=== PATIENT | female | born 1935 | race Caucasian/White ===

== ENCOUNTER 2019-06-22 01:55 | Observation (INO) | payer MEDICARE, OTHER ==
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
[2019-06-22] MEDS ORDERED: Ondansetron PF 4 MG/2 ML Vial IVP PRN (03:41)
[2019-06-22] MEDS ORDERED: cloNIDine 0.1 MG TAB PO PRN (03:41)
[2019-06-22] MEDS ORDERED: hydrALAZINE 20 MG/ML VIAL SLOW IVP PRN (03:41)
[2019-06-22] MEDS ORDERED: Promethazine HCl 12.5 MG in Sodium Chloride 0.9% 50 ML IVPB PRN (03:41)
[2019-06-22] MEDS ORDERED: Morphine 2 MG/ML SYRINGE SLOW IVP PRN (03:41)
[2019-06-22 03:46] LABS: Troponin I 0.022 ng/mL (< 0.028)
[2019-06-22] MEDS ORDERED: Senokot S 8.6-50 MG TAB PO PRN (03:46)
[2019-06-22] MEDS ORDERED: Guaifenesin DM 100-10/5 ML UDCUP PO PRN (03:46)
[2019-06-22] MEDS ORDERED: HYDROcodone/Acetaminophen 5/325 mg Tablet PO PRN (03:46)
[2019-06-22] MEDS ORDERED: Bisacodyl 5 MG TAB PO PRN (03:46)
[2019-06-22] MEDS ORDERED: Acetaminophen 325 MG TAB PO PRN (03:46)
[2019-06-22] MEDS ORDERED: Dextrose 50% Abboject 50 ML SYRINGE SLOW IVP PRN (03:47)
[2019-06-22] MEDS ORDERED: Dextrose 5% in Water 1,000 ML IV PRN (03:47)
[2019-06-22] MEDS ORDERED: HumaLOG 300 UNITS/3 ML VIAL SC PRN (03:47)
[2019-06-22 03:48] VITALS: BMI 24.3
[2019-06-22] MEDS ORDERED: Sodium Chloride 0.9% 1,000 ML IV SCH (04:00)
[2019-06-22 05:00] LABS: Troponin I 0.023 ng/mL (< 0.028)
[2019-06-22 08:20] LABS: Troponin I 0.013 ng/mL (< 0.028)
[2019-06-22] MEDS ORDERED: Prevnar 13-Val Conj/PF 0.5 ML SYRINGE IM ONE (09:00)
[2019-06-22] MEDS: levETIRAcetam 500 mg/5 ml Oral Solution PO SCH ×2 (09:25→21:20)
[2019-06-22] MEDS: Famotidine 20 MG TAB PO SCH (09:27)
[2019-06-22] MEDS: carBAMazepine 200 MG TAB PO SCH ×2 (09:27→21:20)
[2019-06-22] MEDS: Enoxaparin Sodium 40 MG/0.4 ML SYRINGE SC SCH (09:27)
[2019-06-22] MEDS: Polyethylene Glycol 3350 17 GM Packet PO SCH (10:21)
--- NOTE | 2019-06-22 10:30 | PDOC.HOSPP ---
- Subjective Encounter Date: 06/22/19 Encounter Time: 08:15 Subjective: Patient seen and examined. No new complaints. No overnight events - Objective Vital Signs & Weight: Vital Signs (12 hours) Temp Pulse Resp BP Pulse Ox 06/22/19 03:26 98.1 F 96 16 148/69 H 96 Weight Weight 133 lb 1.6 oz I&O: 06/21/19 06/22/19 06/23/19 06:59 06:59 06:59 Intake Total 150 Output Total 0 Balance 150 Additional Labs: Accuchecks 06/22/19 05:50 POC Glucose 141 H Radiology Reviewed by me: Yes EKG Reviewed by me: Yes Hospitalist ROS - Review of Systems ENT: denies: ear pain, ear discharge, nose pain, nose discharge, nose congestion , mouth pain, mouth swelling, throat pain, throat swelling, other Respiratory: denies: cough, dry, shortness of breath, hemoptysis, SOB with excertion, pleuritic pain, sputum, wheezing, other Cardiovascular: denies: chest pain, palpitations, orthopnea, paroxysmal noc. dyspnea, edema, light headedness, other Gastrointestinal: denies: nausea, vomiting, abdominal pain, diarrhea, constipation, melena, hematochezia, other Genitourinary: denies: dysuria, frequency, incontinence, hematuria, retention, other Musculoskeletal: denies: neck pain, shoulder pain, arm pain, back pain, hand pain, leg pain, foot pain, other - Medication Medications: Active Medications Generic Name Dose Route Start Last Admin Trade Name Freq PRN Reason Stop Dose Admin Carbamazepine 200 mg 06/22/19 09:00 06/22/19 09:27 Tegretol PO 200 mg BID PETRONA Administration Enoxaparin Sodium 40 mg 06/22/19 09:00 06/22/19 09:27 Lovenox SC 40 mg 0900 PETRONA Administration Famotidine 20 mg 06/22/19 09:00 06/22/19 09:27 Pepcid PO 20 mg 0900 PETRONA Administration Sodium Chloride 1,000 mls @ 50 mls/hr 06/22/19 04:00 06/22/19 04:33 Normal Saline 0.9% IV 1,000 mls .Q20H PETRONA Administration Levetiracetam 750 mg 06/22/19 09:00 05/06/20 09:25 Keppra Oral Solution PO 750 mg BID PETRONA Administration Polyethylene Glycol 17 gm 06/22/19 09:00 06/22/19 10:21 Miralax PO Not Given DAILY PETRONA - Exam General Appearance: NAD, awake alert Eye: PERRL, anicteric sclera ENT: normocephalic atraumatic, no oropharyngeal lesions Neck: supple, symmetric, no JVD, no thyromegaly Heart: RRR, no murmur, no gallops, no rubs Respiratory: CTAB, no wheezes, no rales, no ronchi Gastrointestinal: soft, non-tender, non-distended Extremities: no cyanosis, no clubbing Extremities - other findings: laceration over left elbow noted Skin: normal turgor, no lesions Neurological: cranial nerve grossly intact, no focal deficits Musculoskeletal: normal tone, normal strength Psychiatric: normal affect, normal behavior Hosp A/P (1) Syncope Code(s): R55 - SYNCOPE AND COLLAPSE Status: Acute (2) Leucocytosis Code(s): D72.829 - ELEVATED WHITE BLOOD CELL COUNT, UNSPECIFIED Status: Acute (3) Seizure disorder Code(s): G40.909 - EPILEPSY, UNSP, NOT INTRACTABLE, WITHOUT STATUS EPILEPTICUS Status: Chronic - Plan old records reviewed/req, PT/OT will observe today will repeat labs tomorrow orthostatic vitals echo PT/OT expecting discharge in morning if no event on tele for 24 hours tried to reach family but unable to contact them on phone, will try again
[2019-06-22] MEDS ORDERED: Diabetic Tussin 200 MG/10 ML UDCUP PO PRN (11:37)
[2019-06-22] MEDS ORDERED: Loperamide HCl 2 MG CAP PO PRN (11:37)
[2019-06-22] MEDS ORDERED: Cepastat Lozenges 1 LOZ PO PRN (11:37)
[2019-06-22] MEDS ORDERED: Artificial Tears 18 DROP/0.9 ML EA EYE PRN (11:37)
[2019-06-22] MEDS ORDERED: Loratadine 10 MG TAB PO PRN (11:37)
[2019-06-22] MEDS ORDERED: Calcium Carbonate 500 MG ChewTAB PO PRN (11:37)
[2019-06-22] MEDS ORDERED: Sodium Chloride 0.65% Nasal 44 ML BOT EA NARE PRN (11:37)
[2019-06-22 13:09] LABS: Troponin I 0.027 ng/mL (< 0.028)
[2019-06-22 15:58] LABS: Troponin I 0.017 ng/mL (< 0.028)
[2019-06-23 04:03] LABS: #Basophils 0.1 thou/uL (0.0-0.2); #Eosinphils 0.6 thou/uL (0.0-0.7); #Lymphocytes 2.4 thou/uL (1.20-3.40); #Monocytes 0.9 thou/uL (0.11-0.59); #Neutrophils 4.9 thou/uL (1.40-6.50); %Basophils 1.3 % (0.0-1.0); %Eosinophils 6.6 % (0.0-10.0); %Lymphocytes 27.4 % (21.0-51.0); %Monocytes 9.7 % (0.0-10.0); Hemoglobin 12.4 g/dL (12.0-16.0); Mean Corpuscular HGB CONC 32.6 g/dL (32.0-36.0); Mean Corpuscular Hemoglobin 30.8 pg (27.0-31.0); Mean Corpuscular Volume 94.5 fL (78.0-98.0); Mean Platelet Volume 6.5 fL (7.4-10.4); Platelet Count 290 thou/uL (130-400); RBC Distribution Width 11.2 % (11.5-14.5); Red Blood Cell (RBC) Count 4.01 mill/uL (4.20-5.40); White Blood Cell (WBC) Count 8.8 thou/uL (4.8-10.8)
[2019-06-23 04:25] LABS: ALT (SGPT) 22 U/L (8-55); AST (SGOT) 31 U/L (5-34); Albumin 3.9 g/dL (3.4-4.8); Alkaline Phosphatase 74 U/L (40-110); Anion Gap 16 mmol/L (10-20); BUN (Urea Nitrogen) 11 mg/dL (9.8-20.1); Bilirubin, Total 0.5 mg/dL (0.2-1.2); Calc. Creatinine Clearance 69 mL/min (70-130); Calcium 8.6 mg/dL (7.8-10.44); Carbon Dioxide 22 mmol/L (23-31); Chloride 99 mmol/L (98-107); Estimated GFR-MDRD Greater than 90; Globulin 3.1 g/dL (2.4-3.5); Glucose 101 mg/dL (83-110); Magnesium 2.2 mg/dL (1.6-2.6); Potassium 3.7 mmol/L (3.5-5.1); Sodium 133 mmol/L (136-145)
[2019-06-23] MEDS ORDERED: Metoprolol Tartrate 25 MG TAB PO SCH (09:00)
[2019-06-23] MEDS ORDERED: Amlodipine 5 MG TAB PO SCH (09:00)
[2019-06-23] MEDS ORDERED: carBAMazepine 200 MG TAB PO SCH (09:00)
[2019-06-23] MEDS: Famotidine 20 MG TAB PO SCH (09:13)
[2019-06-23] MEDS: levETIRAcetam 500 mg/5 ml Oral Solution PO SCH (09:14)
[2019-06-23] MEDS: Enoxaparin Sodium 40 MG/0.4 ML SYRINGE SC SCH (09:15)
[2019-06-23] MEDS: Polyethylene Glycol 3350 17 GM Packet PO SCH (09:18)
[2019-06-23] MEDS: carBAMazepine 200 MG TAB PO SCH (09:21)
--- NOTE | 2019-06-23 09:58 | PDOC.HOSPP ---
- Subjective Encounter Date: 06/23/19 Encounter Time: 08:10 Subjective: Patient seen and examined. No new complaints. No overnight events - Objective Vital Signs & Weight: Vital Signs (12 hours) Temp Pulse Resp BP BP BP Pulse Ox 06/23/19 09:15 80 126/82 06/23/19 04:30 110 H 180/70 H 06/23/19 03:20 97.9 F 110 H 18 180/70 H 94 L 06/23/19 00:00 173/76 H 06/22/19 23:29 178/89 H Weight Admit Weight 133 lb 1.6 oz Weight 133 lb 1.6 oz I&O: 06/22/19 06/23/19 06/24/19 06:59 06:59 06:59 Intake Total 150 150 Output Total 0 Balance 150 150 Result Diagrams: 06/23/19 03:38 06/23/19 03:38 Additional Labs: Accuchecks 06/23/19 06/22/19 06/22/19 05:33 20:22 16:21 POC Glucose 107 122 H 116 H 06/22/19 11:02 POC Glucose 114 H EKG Reviewed by me: Yes Hospitalist ROS - Review of Systems ENT: denies: ear pain, ear discharge, nose pain, nose discharge, nose congestion , mouth pain, mouth swelling, throat pain, throat swelling, other Respiratory: denies: cough, dry, shortness of breath, hemoptysis, SOB with excertion, pleuritic pain, sputum, wheezing, other Cardiovascular: denies: chest pain, palpitations, orthopnea, paroxysmal noc. dyspnea, edema, light headedness, other Gastrointestinal: denies: nausea, vomiting, abdominal pain, diarrhea, constipation, melena, hematochezia, other Genitourinary: denies: dysuria, frequency, incontinence, hematuria, retention, other Musculoskeletal: denies: neck pain, shoulder pain, arm pain, back pain, hand pain, leg pain, foot pain, other - Medication Medications: Active Medications Generic Name Dose Route Start Last Admin Trade Name Freq PRN Reason Stop Dose Admin Amlodipine Besylate 5 mg 06/23/19 09:00 06/23/19 09:15 Norvasc PO Not Given DAILY PETRONA Carbamazepine 200 mg 06/23/19 09:00 06/23/19 09:18 Tegretol PO 200 mg BID PETRONA Administration Clonidine 0.1 mg 06/22/19 03:41 06/22/19 21:24 Catapres PO 0.1 mg BID PRN Administration SBP > 160 use second Enoxaparin Sodium 40 mg 06/22/19 09:00 06/23/19 09:15 Lovenox SC 40 mg 0900 PETRONA Administration Famotidine 20 mg 06/22/19 09:00 06/23/19 09:13 Pepcid PO 20 mg 09 PETRONA Administration Hydralazine HCl 10 mg 06/22/19 03:41 06/23/19 04:30 Apresoline SLOW IVP 10 mg Q6H PRN Administration SBP GREATER THAN 160 Levetiracetam 750 mg 06/22/19 09:00 06/23/19 09:14 Keppra Oral Solution PO 750 mg BID PETRONA Administration Metoprolol Tartrate 25 mg 06/23/19 09:00 06/23/19 09:15 Lopressor PO 25 mg BID PETRONA Administration Polyethylene Glycol 17 gm 06/22/19 09:00 06/23/19 09:18 Miralax PO Not Given DAILY PETRONA - Exam General Appearance: NAD, awake alert Eye: PERRL, anicteric sclera ENT: normocephalic atraumatic, no oropharyngeal lesions Neck: supple, symmetric, no JVD, no thyromegaly Heart: RRR, no murmur, no gallops, no rubs Respiratory: CTAB, no wheezes, no rales, no ronchi Gastrointestinal: soft, non-tender, non-distended, normal bowel sounds Extremities: no cyanosis, no clubbing, no edema Skin: normal turgor, no lesions Neurological: no focal deficits Musculoskeletal: normal tone, normal strength Psychiatric: normal affect, normal behavior Hosp A/P (1) Syncope Code(s): R55 - SYNCOPE AND COLLAPSE Status: Acute (2) Leucocytosis Code(s): D72.829 - ELEVATED WHITE BLOOD CELL COUNT, UNSPECIFIED Status: Acute (3) Seizure disorder Code(s): G40.909 - EPILEPSY, UNSP, NOT INTRACTABLE, WITHOUT STATUS EPILEPTICUS Status: Chronic - Plan old records reviewed/req will observe today will repeat labs tomorrow orthostatic vitals echo PT/OT expecting discharge in morning if no event on tele for 24 hours tried to reach family but unable to contact them on phone, will try again 06/23/19 home health on DC add metoprolol DC today
--- NOTE | 2019-06-23 10:58 | DIS ---
DATE OF ADMISSION: 06/22/2019 DATE OF DISCHARGE: 06/23/2019 PRIMARY CARE PHYSICIAN: [facility] Call Admission. DISCHARGE DISPOSITION: Home with home health. PRIMARY DISCHARGE DIAGNOSES: 1. Syncope, unclear etiology, resolved. 2. Leukocytosis, resolved. 3. Hypertension. SECONDARY DISCHARGE DIAGNOSIS: Seizure disorder. PRIMARY PROCEDURE/OPERATION: None. RADIOLOGICAL INVESTIGATION: Echocardiography showed EF 55% to 60%. SIGNIFICANT LABORATORY DATA: WBC 8.8, hemoglobin 12.4, platelets 290. Sodium 133, creatinine 0.60. LFT normal. Cardiac enzymes negative. DISCHARGE MEDICATIONS: 1. Metoprolol 25 mg p.o. twice daily. 2. Keppra 750 mg p.o. b.i.d. 3. Tegretol 200 mg p.o. b.i.d. CONTRAINDICATION: None. CODE STATUS: Full code. INPATIENT RN HEDIS: None. ALLERGIES: NO KNOWN DRUG ALLERGIES. DISCHARGE PLAN: Posthospital, the patient will follow up with primary care physician in one week. HOSPITAL COURSE: An 83-year-old female with above-mentioned medical problem, who was admitted by Dr. Howard, please see his H and P for further details. The patient was transferred from [place] [facility] for syncopal episode. The patient did not have any seizure activity. Routine workup at other emergency room unremarkable. We obtained echocardiography, which was also unremarkable. Orthostatic vitals were slightly positive, but the patient was having high blood pressure and that is why we started metoprolol on discharge. Otherwise, the patient did not have any seizure activity, and her telemetry remained unremarkable and we have ruled out acute coronary syndrome. The patient was seen and examined at bedside today. Please see my progress note from today for further details. The patient is medically stable for discharge today. Job ID: [id number]
[2019-06-23 11:34] VITALS: TEMP 97.6
[2019-06-23 13:52] VITALS: BP 116/56
--- NOTE | 2019-06-26 15:59 | EKG ---
Test Reason : STAT Blood Pressure : / mmHG Vent. Rate : 087 BPM Atrial Rate : 087 BPM P-R Int : 182 ms QRS Dur : 086 ms QT Int : 372 ms P-R-T Axes : 063 086 095 degrees QTc Int : 447 ms Normal sinus rhythm Minimal voltage criteria for LVH, may be normal variant Nonspecific ST and T wave abnormality Abnormal ECG No previous ECGs available Confirmed by MARGARET PALMER (2) on 06/26/2019 3:58:55 PM Referred By: ROLDAN Confirmed By:MARGARET PALMER
== END 2019-06-23 15:30 | disposition home health service (06) ==
LOC: ERS 01:55 → 2NO 02:49
PROVIDERS: ADMIT Internal Medicine; ATTEND Internal Medicine
DX: R55 Syncope and collapse (principal); D72.829 Elevated white blood cell count, unspecified; I10 Essential (primary) hypertension; E11.9 Type 2 diabetes mellitus without complications; G40.909 Epilepsy, unspecified, not intractable, without status epilepticus; Z87.891 Personal history of nicotine dependence; W18.30XA Fall on same level, unspecified, initial encounter
CPT/HCPCS: 80053; 82962 ×2; 83735; 84484; 85025; 93005; 93306; 96372 ×2; 96374; 97116; 97139 ×2; 97535 ×2; 99284; G0378 ×3; 36415; 36416; 93010; J0360; J1650

== ENCOUNTER 2020-06-25 10:12 | Outpatient (CLI) | payer MEDICARE, OTHER ==
[2020-06-25 11:05] LABS: Estimated GFR-MDRD - POC Greater than 90
== END 2020-06-25 10:13 | disposition home or self-care (01) ==
LOC: BICMRI 10:12
PROVIDERS: ATTEND Nurse Practitioner Acute Care
DX: R29.898 Other symptoms and signs involving the musculoskeletal system (principal); M47.816 Spondylosis without myelopathy or radiculopathy, lumbar region; M51.36 Other intervertebral disc degeneration, lumbar region; M43.16 Spondylolisthesis, lumbar region; M48.061 Spinal stenosis, lumbar region without neurogenic claudication; M48.07 Spinal stenosis, lumbosacral region
CPT/HCPCS: 72158; 82565

== ENCOUNTER 2024-03-28 17:00 | Inpatient (IN) | payer MEDICARE, OTHER ==
[~2024-03-28 17:00] MED LIST: Iopamidol-370 76% 500 ML MDV (1 ML CHARGE) ONE
[2024-03-28 17:42] LABS: #Basophils Less than 0.03 10x3/uL (0.0-0.2); %Basophils 0.2 % (0.0-1.0); %Eosinophils 2.2 % (0.0-10.0); %Lymphocytes 14.6 % (21.0-51.0); %Monocytes 12.3 % (0.0-10.0); %Neutrophils 70.2 % (42.0-75.0); Hematocrit 31.4 % (36.0-47.0); Hemoglobin 9.9 g/dL (12.0-16.0); Mean Corpuscular HGB CONC 31.5 g/dL (32.0-36.0); Mean Corpuscular Hemoglobin 28.4 pg (27.0-31.0); Mean Corpuscular Volume 90.2 fL (78.0-98.0); Mean Platelet Volume 9.3 fL (7.4-10.4); Platelet Count 270 10x3/uL (130-400); RBC Distribution Width 13.3 % (11.5-14.5); Red Blood Cell (RBC) Count 3.48 mill/uL (4.20-5.40)
[2024-03-28 18:02] LABS: Bacteria/HPF None Seen HPF (None Seen); Bilirubin Negative (Negative); Blood, Urine Trace (Negative); CAUTI Indications for Culture Alt mental st,lethar; Clarity Clear (Clear); Glucose, Urine (Dipstick) 30 mg/dL (Negative); Ketone, Urine 60 mg/dL (Negative); Leukocyte Negative Leu/uL (Negative); Nitrite Negative (Negative); Protein, Urine (Dipstick) 50 mg/dL (Neg-Trace); Specific Gravity, Urine 1.026 (1.002-1.036); Urine Culture Reflex No No; pH, Urine 6.5 (5.0-9.0)
[2024-03-28] MEDS ORDERED: cefTRIAXone (ROCEPHIN) 2 GM VIAL ONE (18:06)
[2024-03-28 18:08] LABS: Troponin I 0.048 ng/mL (< 0.028)
[2024-03-28 18:10] LABS: ALT (SGPT) 13 U/L (Less than 34); AST (SGOT) 23 U/L (11-34); Albumin 3.1 g/dL (3.1-4.5); Alkaline Phosphatase 64 U/L (40-110); Anion Gap 16 mmol/L (10-20); BUN (Urea Nitrogen) 13 mg/dL (9.8-20.1); Bilirubin, Total 0.8 mg/dL (0.3-1.2); Calc. Creatinine Clearance 0 mL/min (70-130); Calcium 8.8 mg/dL (7.8-10.44); Carbon Dioxide 31 mmol/L (23-31); Chloride 101 mmol/L (98-107); Estimated GFR 88; Globulin 3.7 g/dL (2.4-3.5); Glucose 126 mg/dL (83-110); Potassium 2.8 mmol/L (3.5-5.1); Protein, Total 6.8 g/dL (5.8-8.1); Sodium 145 mmol/L (136-145)
[2024-03-28 18:22] LABS: INR-International Normal Ratio 1.2; PTT 29.4 sec (22.9-36.1); Prothrombin Time 14.8 sec (12.0-14.7)
[2024-03-28] MEDS ORDERED: Potassium Chloride 20 MEQ (100 mL) BAG ONE (18:40)
[2024-03-28] MEDS ORDERED: Potassium Chloride 20 MEQ TAB ONE (18:40)
[2024-03-28] MEDS ORDERED: cloNIDine 0.1 MG TAB ONE (21:20)
[2024-03-28] MEDS ORDERED: Furosemide 20 MG (2 mL) VIAL ONE (22:04)
[2024-03-28 22:05] LABS: Actual Bicarbonate (HCO3a) 26.3 mEq/L (22-28); Analyzer IN Cardio ER; CO2 Tension 45.1 mmHg (35.0-45.0); Calcium, Ionized (arterial) 1.11 mmol/L (1.12-1.30); Carboxyhemoglobin (COHb) 0.4 gm% (0.0-3.0); Hematocrit-ABG 31 % (36.0-47.0); Hemoglobin (Hb) 10.6 g/dL (12.0-16.0); O2 Tension (PaO2), arterial 86.9 mmHg (> 60.0); Potassium - ABG Lab 3.39 mmol/L (3.70-5.30); pH, Arterial 7.384 (7.35-7.45)
[2024-03-28 22:06] LABS: ALV-art Gradient 56.365 mmHg (0-20); Puncture Site Right Brachial art
[2024-03-28] MEDS ORDERED: Ipratropium/Albuterol 3 ML NEB EZPAP PRN (22:08)
[2024-03-28] MEDS ORDERED: levETIRAcetam 500 MG (5 mL) VIAL ONE (23:53)
[2024-03-29 00:18] LABS: Anion Gap 19 mmol/L (10-20); BUN (Urea Nitrogen) 10 mg/dL (9.8-20.1); Calc. Creatinine Clearance 0 mL/min (70-130); Calcium 8.5 mg/dL (7.8-10.44); Carbon Dioxide 28 mmol/L (23-31); Chloride 99 mmol/L (98-107); Estimated GFR 88; Glucose 164 mg/dL (83-110); Magnesium 1.6 mg/dL (1.6-2.6); Potassium 3.1 mmol/L (3.5-5.1); Sodium 143 mmol/L (136-145)
[2024-03-29 00:23] LABS: Troponin I 0.056 ng/mL (< 0.028)
[2024-03-29 00:40] LABS: Amphetamine Not Detected (NotDetected); Barbiturates Screen Not Detected (NotDetected); Benzodiazepine Screen Not Detected (NotDetected); Cocaine Metabolite Screen Not Detected (NotDetected); Methadone Not Detected (NotDetected); Methamphetamine Not Detected (NotDetected); Opiate Screen Not Detected (NotDetected); Oxycodone Screen Not Detected (NotDetected); Phencyclidine (PCP) Not Detected (NotDetected); THC/Cannabinoid Screen Not Detected (NotDetected); Tricyclic Screen Not Detected (NotDetected)
[2024-03-29] MEDS: carBAMazepine 200 MG TAB PO SCH ×2 (02:09→17:18)
[2024-03-29] MEDS ORDERED: Dextrose 5% in Water 1,000 ML IV PRN (02:57)
[2024-03-29] MEDS ORDERED: Glucagon 1 MG/ML KIT IM PRN (02:57)
[2024-03-29] MEDS ORDERED: Insulin Lispro 100 UNIT/ML 10 ML VIAL SC PRN ×2 (02:57)
[2024-03-29] MEDS ORDERED: Dextrose 50% Abboject 50 ML SYRINGE SLOW IVP PRN (02:57)
[2024-03-29 02:58] LABS: Carbamazepine-Tegretol Less than 0.4 ug/mL (4.0-12.0)
[2024-03-29 02:59] VITALS: BMI 21.7
[2024-03-29] MEDS ORDERED: Lorazepam 2 MG/ML VIAL SLOW IVP PRN (03:17)
[2024-03-29] MEDS: Magnesium 2 GM/50 ML(in water) 2 GM in Premix 1 BAG IVPB SCH (04:06)
[2024-03-29] MEDS: Magnesium Sulfate 2 GM in Sodium Chloride 0.9% 100 ML IVPB SCH (04:14)
[2024-03-29 04:49] LABS: Anion Gap 18 mmol/L (10-20); BUN (Urea Nitrogen) 8 mg/dL (9.8-20.1); Calc. Creatinine Clearance 72 mL/min (70-130); Calcium 8.3 mg/dL (7.8-10.44); Carbon Dioxide 28 mmol/L (23-31); Chloride 101 mmol/L (98-107); Estimated GFR 89; Glucose 120 mg/dL (83-110); Magnesium 1.7 mg/dL (1.6-2.6); Potassium 3.1 mmol/L (3.5-5.1); Sodium 144 mmol/L (136-145)
[2024-03-29 06:40] LABS: #Basophils 0.03 10x3/uL (0.0-0.2); %Basophils 0.3 % (0.0-1.0); %Lymphocytes 14.3 % (21.0-51.0); %Monocytes 14.1 % (0.0-10.0); %Neutrophils 67.8 % (42.0-75.0); Hemoglobin 9.4 g/dL (12.0-16.0); Mean Corpuscular HGB CONC 31.3 g/dL (32.0-36.0); Mean Corpuscular Hemoglobin 28.7 pg (27.0-31.0); Mean Corpuscular Volume 91.5 fL (78.0-98.0); Mean Platelet Volume 9.8 fL (7.4-10.4); Platelet Count 242 10x3/uL (130-400); RBC Distribution Width 13.3 % (11.5-14.5); Red Blood Cell (RBC) Count 3.28 mill/uL (4.20-5.40)
[2024-03-29] MEDS ORDERED: carBAMazepine 200 MG TAB PO SCH (08:00)
[2024-03-29] MEDS ORDERED: FLU (Fluad Triv) TS24-25 (65UP)/MF59C/PF 45 MCG/0.5 ML Syringe IM ONE (09:00)
[2024-03-29] MEDS: Potassium Chloride 40 MEQ in Premix 1 BAG IVPB SCH (09:15)
[2024-03-29] MEDS: levETIRAcetam 500 MG (5 mL) VIAL SLOW IVP SCH ×2 (09:15→21:56)
[2024-03-29 09:22] VITALS: BMI 21.7
[2024-03-29] MEDS ORDERED: levETIRAcetam 500 MG TAB PO SCH (21:00)
[2024-03-30 04:02] LABS: #Basophils 0.04 10x3/uL (0.0-0.2); %Basophils 0.6 % (0.0-1.0); %Eosinophils 7.2 % (0.0-10.0); %Lymphocytes 16.8 % (21.0-51.0); %Monocytes 9.3 % (0.0-10.0); %Neutrophils 65.7 % (42.0-75.0); Hematocrit 30.1 % (36.0-47.0); Hemoglobin 9.1 g/dL (12.0-16.0); Mean Corpuscular HGB CONC 30.2 g/dL (32.0-36.0); Mean Corpuscular Hemoglobin 28.8 pg (27.0-31.0); Mean Corpuscular Volume 95.3 fL (78.0-98.0); Mean Platelet Volume 9.7 fL (7.4-10.4); Platelet Count 247 10x3/uL (130-400); RBC Distribution Width 13.4 % (11.5-14.5); Red Blood Cell (RBC) Count 3.16 mill/uL (4.20-5.40)
[2024-03-30 04:43] LABS: Anion Gap 15 mmol/L (10-20); BUN (Urea Nitrogen) 12 mg/dL (9.8-20.1); Calc. Creatinine Clearance 71 mL/min (70-130); Calcium 8.4 mg/dL (7.8-10.44); Carbon Dioxide 28 mmol/L (23-31); Chloride 105 mmol/L (98-107); Estimated GFR 89; Glucose 79 mg/dL (83-110); Magnesium 2.2 mg/dL (1.6-2.6); Potassium 3.5 mmol/L (3.5-5.1); Sodium 144 mmol/L (136-145)
[2024-03-30] MEDS: cefTRIAXone\\ROCEPHIN 1 GM in Sodium Chloride 0.9% 100 ML IVPB SCH (08:30)
[2024-03-31 04:37] LABS: #Basophils 0.03 10x3/uL (0.0-0.2); %Basophils 0.4 % (0.0-1.0); %Eosinophils 6.2 % (0.0-10.0); %Lymphocytes 21.5 % (21.0-51.0); %Monocytes 11.5 % (0.0-10.0); Hematocrit 33.8 % (36.0-47.0); Hemoglobin 10.5 g/dL (12.0-16.0); Mean Corpuscular HGB CONC 31.1 g/dL (32.0-36.0); Mean Corpuscular Hemoglobin 28.5 pg (27.0-31.0); Mean Corpuscular Volume 91.6 fL (78.0-98.0); Mean Platelet Volume 9.8 fL (7.4-10.4); Platelet Count 261 10x3/uL (130-400); RBC Distribution Width 13.3 % (11.5-14.5); Red Blood Cell (RBC) Count 3.69 mill/uL (4.20-5.40)
[2024-03-31 04:53] LABS: Anion Gap 13 mmol/L (10-20); BUN (Urea Nitrogen) 16 mg/dL (9.8-20.1); Calc. Creatinine Clearance 68 mL/min (70-130); Calcium 8.3 mg/dL (7.8-10.44); Carbon Dioxide 26 mmol/L (23-31); Chloride 103 mmol/L (98-107); Estimated GFR 88; Glucose 121 mg/dL (83-110); Magnesium 1.9 mg/dL (1.6-2.6); Potassium 3.9 mmol/L (3.5-5.1); Sodium 138 mmol/L (136-145)
[2024-03-31 15:46] VITALS: BP 150/80; TEMP 98.5
== END 2024-03-31 17:35 | disposition home health service (06) | DRG 70 ==
LOC: ERS 17:00 → ERHOLD 21:06 → PCU 03-29 02:32
PROVIDERS: ADMIT Internal Medicine; ATTEND Internal Medicine
DX: G93.41 Metabolic encephalopathy (principal); N18.6 End stage renal disease; E87.5 Hyperkalemia; E78.5 Hyperlipidemia, unspecified; Z88.5 Allergy status to narcotic agent; Z88.8 Allergy status to other drugs, medicaments and biological substances
CPT/HCPCS: 36415; 36416; 36600; 70450; 71045; 71275; 74177; 74230; 80048; 80053; 80156; 80177; 80306; 81001; 82805; 83605; 83735; 83880; 84484; 85025; 85610; 85730; 87040; 93005; 93306; 94640; 94760; 96374; 96375; 97139; J0696; J1940; J1953; J3475; J3480; Q9967